=== PATIENT | male | born 1940 | race Caucasian/White ===

== ENCOUNTER 2021-11-16 10:37 | Emergency (ER) | payer MEDICARE, OTHER ==
[2021-11-16 11:41] LABS: HEMOGLOBIN 15.2 gm/dl (14.0-17.5); RED BLOOD COUNT 4.93 M/UL (4.20-5.50)
[2021-11-16 12:42] LABS: BUN/CREATININE RATIO 14 (0-10)
[2021-11-16] MEDS ORDERED: K-TAB ER20 MEQ PO (13:33)
[2021-11-16] MEDS ORDERED: LASIX40 MG PO (13:33)
[2021-11-16] MEDS ORDERED: DOXYCYCLINE HY100 M2 PO (13:33)
== END 2021-11-16 15:16 | disposition home or self-care (01) ==
LOC: ER1 10:37
PROVIDERS: Physician Assistant
DX: I11.0 Hypertensive heart disease with heart failure (principal); I50.9 Heart failure, unspecified; E03.9 Hypothyroidism, unspecified; Z79.899 Other long term (current) drug therapy
CPT/HCPCS: 71045; 80053; 82550; 82553; 83880; 84439; 84443; 84484; 85025; 93005; 96374; 99285; J1940

== ENCOUNTER → 2022-01-16 | Outpatient (CLI) | payer MEDICARE ==
[~2022-01-16] MED LIST: DOXYCYCLINE HY100 M2 PO; K-TAB ER20 MEQ PO; LASIX40 MG PO
== END ==
LOC: HEART 5 13:00
DX: R06.02 Shortness of breath (principal); R01.1 Cardiac murmur, unspecified; I08.3 Combined rheumatic disorders of mitral, aortic and tricuspid valves
CPT/HCPCS: 93306

== ENCOUNTER → 2022-02-12 | Outpatient (CLI) | payer MEDICARE, OTHER ==
[~2022-02-12] MED LIST changes: +BUMETANIDE1 MG PO; +FLOMAX 0.4 MG0.4 MG PO; +LEVOTHYROXINE50 MC1 PO; +LISINOPRIL30 MG PO
[2022-02-12 07:33] LABS: HEMOGLOBIN 13.6 gm/dl (14.0-17.5); RED BLOOD COUNT 4.47 M/UL (4.20-5.50); WHITE BLOOD COUNT 6.2 K/UL (4.5-11.0)
== END ==
LOC: CATH 06:50
PROVIDERS: Internal Medicine Cardiovascular Disease
DX: I35.0 Nonrheumatic aortic (valve) stenosis (principal); I49.5 Sick sinus syndrome; I13.0 Hypertensive heart and chronic kidney disease with heart failure and stage 1 through stage 4 chronic kidney disease, or unspecified chronic kidney disease; I50.32 Chronic diastolic (congestive) heart failure; E03.9 Hypothyroidism, unspecified; N18.9 Chronic kidney disease, unspecified; Z87.891 Personal history of nicotine dependence; Z79.2 Long term (current) use of antibiotics; Z79.899 Other long term (current) drug therapy; Z95.0 Presence of cardiac pacemaker
CPT/HCPCS: 71045; 80048; 85025; J1644; J2250; J3010; Q9965